=== PATIENT | female | born 1950 | race Caucasian/White ===

== ENCOUNTER 2016-08-26 22:26 | Emergency (ER) | payer MEDICARE, OTHER | END 2016-08-27 04:00 | disposition home or self-care (01) | LOC: ER1 22:26 | DX: M54.42 Lumbago with sciatica, left side (principal); M54.41 Lumbago with sciatica, right side; I25.10 Atherosclerotic heart disease of native coronary artery without angina pectoris; I10 Essential (primary) hypertension; E11.9 Type 2 diabetes mellitus without complications; J44.9 Chronic obstructive pulmonary disease, unspecified | CPT/HCPCS: 72131; 81001; 87086; 96372; 99284; J1885 ==

== ENCOUNTER → 2016-08-30 | Outpatient (CLI) | payer MEDICARE, OTHER | LOC: RAD 14:33 | DX: R11.0 Nausea (principal) | CPT/HCPCS: 74000 ==

== ENCOUNTER → 2016-09-03 | Outpatient (CLI) | payer MEDICARE, OTHER | LOC: EMI 08-28 09:00 | DX: Z00.00 Encounter for general adult medical examination without abnormal findings (principal); Z12.11 Encounter for screening for malignant neoplasm of colon; E55.9 Vitamin D deficiency, unspecified; E78.2 Mixed hyperlipidemia; G89.4 Chronic pain syndrome; I10 Essential (primary) hypertension; I25.10 Atherosclerotic heart disease of native coronary artery without angina pectoris; I82.513 Chronic embolism and thrombosis of femoral vein, bilateral; I82.593 Chronic embolism and thrombosis of other specified deep vein of lower extremity, bilateral; J02.9 Acute pharyngitis, unspecified; J20.9 Acute bronchitis, unspecified; J44.9 Chronic obstructive pulmonary disease, unspecified; J45.909 Unspecified asthma, uncomplicated; K21.9 Gastro-esophageal reflux disease without esophagitis; K25.7 Chronic gastric ulcer without hemorrhage or perforation; L60.1 Onycholysis; M51.36 Other intervertebral disc degeneration, lumbar region; R07.0 Pain in throat; R07.89 Other chest pain; R10.31 Right lower quadrant pain; R10.811 Right upper quadrant abdominal tenderness; R10.816 Epigastric abdominal tenderness; R19.7 Diarrhea, unspecified; R35.0 Frequency of micturition; R53.83 Other fatigue; M43.16 Spondylolisthesis, lumbar region | CPT/HCPCS: 72148 ==

== ENCOUNTER → 2016-10-07 | Outpatient (CLI) | payer MEDICARE, OTHER | LOC: EMI 09-20 16:15 | DX: M51.36 Other intervertebral disc degeneration, lumbar region (principal); M47.13 Other spondylosis with myelopathy, cervicothoracic region; M50.321 Other cervical disc degeneration at C4-C5 level; M54.16 Radiculopathy, lumbar region; M54.2 Cervicalgia | CPT/HCPCS: 72141 ==

== ENCOUNTER 2016-10-27 11:10 | Emergency (ER) | payer MEDICARE, OTHER ==
[2016-10-27 14:19] LABS: RED BLOOD COUNT 4.09 M/UL (4.00-5.10); WHITE BLOOD COUNT 9.5 K/UL (4.5-11.0)
[2016-10-27 14:48] LABS: BUN/CREATININE RATIO 27 (0-10)
== END 2016-10-27 16:52 | disposition home or self-care (01) ==
LOC: ER1 11:10
PROVIDERS: Preventive Medicine Occupational Medicine
DX: N39.0 Urinary tract infection, site not specified (principal); I25.10 Atherosclerotic heart disease of native coronary artery without angina pectoris; G89.29 Other chronic pain
CPT/HCPCS: 36415; 71020; 72131; 80053; 80307; 81001; 82150; 83605; 83690; 85025; 86140; 87040; 96361; 96365; 96375; 99284; J0696; J2405; J7030; J7050